=== PATIENT | male | born 1955 | race Two or more races ===

== ENCOUNTER 2022-06-25 03:20 | Emergency (ER) | payer OTHER ==
[2022-06-25 03:30] VITALS: BP 155/79; PULSE 86; RESP 17; TEMP 98.2; BMI 27.1
[2022-06-25] MEDS ORDERED: DEXAMETHASONE SOD PHOSPHATE 10 MG/1 ML VIAL IM ONE (03:54)
[2022-06-25] MEDS ORDERED: ALBUTEROL SO4 2.5/IPRATROPIUM 0.5 INH SOL 3 ML VIAL.NEB. NEB ONE (03:56)
[2022-06-25] MEDS ORDERED: DEXAMETHASONE SOD PHOSPHATE 10 MG/1 ML VIAL ONE (03:57)
[2022-06-25] MEDS ORDERED: ALBUTEROL SO4 2.5/IPRATROPIUM 0.5 INH SOL 3 ML VIAL.NEB. NEB SCH (04:00)
== END 2022-06-25 04:55 | disposition left against medical advice (07) ==
LOC: JER 03:20
PROC: 3E023GC Introduction of Other Therapeutic Substance into Muscle, Percutaneous Approach (ICD-10-PCS; principal; 2022-06-25)
PROC: 3E0F7GC Introduction of Other Therapeutic Substance into Respiratory Tract, Via Natural or Artificial Opening (ICD-10-PCS; 2022-06-25)
DX: R06.02 Shortness of breath (principal); J98.01 Acute bronchospasm; Z53.21 Procedure and treatment not carried out due to patient leaving prior to being seen by health care provider
CPT/HCPCS: 99284-25; J1100

== ENCOUNTER 2022-06-28 19:04 | Emergency (ER) | payer OTHER ==
[2022-06-28 19:10] VITALS: BMI 25.7
[2022-06-28] MEDS ORDERED: methylPREDNISolone NA SUCC 125 MG/2 ML VIAL IVPUSH ONE (20:11)
[2022-06-28] MEDS ORDERED: ALBUTEROL SO4 2.5/IPRATROPIUM 0.5 INH SOL 3 ML VIAL.NEB. NEB ONE ×3 (20:11→21:23)
[2022-06-28] MEDS ORDERED: methylPREDNISolone NA SUCC 125 MG/2 ML VIAL ONE (20:38)
[2022-06-28 21:10] LABS: BASO % 2.6 % (0-2.0); EOS % 10.7 % (0-4.5); MCHC 35.2 g/dl (32.0-35.9); MEAN PLT VOLUME 7.7 fl (7.5-11.1); MONO % 5.4 % (3.8-10.2); NEUT % 47.3 % (42.8-82.8); PLATELET COUNT 279 10^3/uL (134-434); RDW 13.4 % (11.9-15.9); WHITE BLOOD COUNT 14.6 K/mm3 (4.0-10.0)
[2022-06-28 21:17] LABS: INR 0.99 (0.83-1.09); PROTHROMBIN TIME (PATIENT) 11.5 SEC (9.7-13.0)
[2022-06-28 21:19] LABS: ACTIVATED PTT 31.9 SECONDS (25.2-36.5)
[2022-06-28] MEDS ORDERED: ALBUTEROL SO4 0.083% IH SOL 2.5 MG/3 ML VIAL.NEB. NEB ONE ×2 (21:22→21:30)
[2022-06-28] MEDS ORDERED: MAGNESIUM SULF 50% (8.12 MEQ/2 ML-1 GM VIAL) IVPB ONE (21:23)
[2022-06-28] MEDS ORDERED: MAGNESIUM SULFATE IN WATER 2 GM/50 ML IVPB IVPB ONE (21:24)
[2022-06-28 21:41] LABS: POTASSIUM 3.7 mmol/L (3.5-5.1)
[2022-06-28 21:43] LABS: CALCIUM 8.7 mg/dL (8.5-10.1)
[2022-06-28 21:44] LABS: ALBUMIN 4.2 g/dl (3.4-5.0); BLOOD UREA NITROGEN 15.5 mg/dL (7-18)
[2022-06-28 21:47] LABS: CREATININE 1.1 mg/dL (0.55-1.3)
[2022-06-28 21:49] LABS: BILIRUBIN,TOTAL 0.4 mg/dL (0.2-1)
[2022-06-28 21:51] LABS: N-TERMINAL BNP 17.4 pg/ml (5-125)
[2022-06-28 23:52] VITALS: BP 142/79; PULSE 89; RESP 18; TEMP 98.2
== END 2022-06-29 01:15 | disposition home or self-care (01) ==
LOC: JER 19:04
PROC: 3E03329 Introduction of Other Anti-infective into Peripheral Vein, Percutaneous Approach (ICD-10-PCS; principal; 2022-06-28)
PROC: 3E0F7GC Introduction of Other Therapeutic Substance into Respiratory Tract, Via Natural or Artificial Opening (ICD-10-PCS; 2022-06-28)
PROC: 3E0F7GC Introduction of Other Therapeutic Substance into Respiratory Tract, Via Natural or Artificial Opening (ICD-10-PCS; 2022-06-28)
PROC: 3E033GC Introduction of Other Therapeutic Substance into Peripheral Vein, Percutaneous Approach (ICD-10-PCS; 2022-06-28)
PROC: 3E033GC Introduction of Other Therapeutic Substance into Peripheral Vein, Percutaneous Approach (ICD-10-PCS; 2022-06-28)
DX: R05.9 Cough, unspecified (principal); R06.2 Wheezing; R06.02 Shortness of breath; J20.9 Acute bronchitis, unspecified; Z20.822 Contact with and (suspected) exposure to COVID-19
CPT/HCPCS: 0241U-QW; 36415; 71045-TC-FY; 80053; 82550; 82553; 83880; 84484; 85025; 85610; 85730; 93005; 93010; 94640; 96365; 96375; 99285-25

== ENCOUNTER 2022-07-17 01:10 | Emergency (ER) | payer OTHER ==
[2022-07-17 01:22] VITALS: BP 149/77; PULSE 81; RESP 20; TEMP 98.1; BMI 25.7
[2022-07-17] MEDS ORDERED: methylPREDNISolone NA SUCC 125 MG/2 ML VIAL IVPUSH ONE (01:31)
[2022-07-17] MEDS ORDERED: methylPREDNISolone NA SUCC 125 MG/2 ML VIAL ONE (01:37)
[2022-07-17] MEDS: ALBUTEROL SO4 2.5/IPRATROPIUM 0.5 INH SOL 3 ML VIAL.NEB. NEB SCH ×3 (01:53→02:30)
[2022-07-17] MEDS ORDERED: MAGNESIUM SULFATE IN WATER 2 GM/50 ML IVPB IVPB ONE ×2 (02:54→03:00)
[2022-07-17] MEDS ORDERED: ALBUTEROL SO4 0.083% IH SOL 2.5 MG/3 ML VIAL.NEB. NEB ONE (02:54)
[2022-07-17 02:58] LABS: BASO % 0.7 % (0-2.0); EOS % 11.1 % (0-4.5); HEMATOCRIT 48.9 % (35.4-49); HEMOGLOBIN 17.3 GM/dL (11.7-16.9); LYMPH % 26.2 % (8-40); MCH 31.3 pg (25.7-33.7); MCHC 35.3 g/dl (32.0-35.9); MEAN CELL VOLUME 88.7 fl (80-96); MEAN PLT VOLUME 8.5 fl (7.5-11.1); MONO % 6.8 % (3.8-10.2); NEUT % 55.2 % (42.8-82.8); PLATELET COUNT 284 10^3/uL (134-434); RBC 5.52 M/mm3 (4.00-5.60); RDW 13.5 % (11.9-15.9); WHITE BLOOD COUNT 13.1 K/mm3 (4.0-10.0)
[2022-07-17] MEDS: ALBUTEROL SO4 0.083% IH SOL 2.5 MG/3 ML VIAL.NEB. NEB SCH ×3 (02:58→03:49)
[2022-07-17 03:04] LABS: INR 1.03 (0.83-1.09); PROTHROMBIN TIME (PATIENT) 11.9 SEC (9.7-13.0)
[2022-07-17 03:06] LABS: ACTIVATED PTT 33.3 SECONDS (25.2-36.5)
[2022-07-17 03:17] LABS: POTASSIUM 5.6 mmol/L (3.5-5.1)
[2022-07-17 03:59] LABS: MAGNESIUM 2.1 mg/dL (1.8-2.4)
[2022-07-17 04:00] LABS: CALCIUM 9.3 mg/dL (8.5-10.1)
[2022-07-17 04:02] LABS: CREATININE 1.2 mg/dL (0.55-1.3)
[2022-07-17 04:04] LABS: BILIRUBIN,TOTAL 0.8 mg/dL (0.2-1)
[2022-07-17 04:07] LABS: TOT PROT 7.6 g/dl (6.4-8.2)
== END 2022-07-17 04:43 | disposition home or self-care (01) ==
LOC: JER 01:10
PROC: 3E033GC Introduction of Other Therapeutic Substance into Peripheral Vein, Percutaneous Approach (ICD-10-PCS; principal; 2022-07-17)
PROC: 3E033GC Introduction of Other Therapeutic Substance into Peripheral Vein, Percutaneous Approach (ICD-10-PCS; 2022-07-17)
PROC: 3E0F7GC Introduction of Other Therapeutic Substance into Respiratory Tract, Via Natural or Artificial Opening (ICD-10-PCS; 2022-07-17)
PROC: 3E0F7GC Introduction of Other Therapeutic Substance into Respiratory Tract, Via Natural or Artificial Opening (ICD-10-PCS; 2022-07-17)
DX: J45.909 Unspecified asthma, uncomplicated (principal); R06.02 Shortness of breath; R07.89 Other chest pain; R05.9 Cough, unspecified; Z20.822 Contact with and (suspected) exposure to COVID-19
CPT/HCPCS: 0241U-QW; 36415; 71046-TC-FY; 80053; 83735; 85025; 85610; 85730; 93005; 93010; 99285-25

== ENCOUNTER 2023-09-10 20:02 | Emergency (ER) | payer OTHER ==
[2023-09-10 20:10] VITALS: RESP 18; BMI 24.5
[2023-09-10] MEDS ORDERED: ACETAMINOPHEN 325 MG TABLET (FP) ONE (21:55)
[2023-09-10] MEDS: ACETAMINOPHEN 500 MG TABLET (FP) PO ONE (21:57)
[2023-09-11 00:29] LABS: BASO % 0.7 % (0-2.0); EOS % 4.3 % (0-4.5); HEMATOCRIT 47.4 % (35.4-49); HEMOGLOBIN 16.7 GM/dL (11.7-16.9); LYMPH % 19.4 % (8-40); MCH 31.3 pg (25.7-33.7); MCHC 35.3 g/dl (32.0-35.9); MEAN CELL VOLUME 88.8 fl (80-96); MEAN PLT VOLUME 7.8 fl (7.5-11.1); MONO % 8.8 % (3.8-10.2); NEUT % 66.8 % (42.8-82.8); PLATELET COUNT 296 10^3/uL (134-434); RBC 5.34 M/mm3 (4.00-5.60); WHITE BLOOD COUNT 13.2 K/mm3 (4.0-10.0)
[2023-09-11 00:46] LABS: POTASSIUM 4.2 mmol/L (3.5-5.1)
[2023-09-11 00:48] LABS: CALCIUM 8.8 mg/dL (8.5-10.1)
[2023-09-11 00:49] LABS: BLOOD UREA NITROGEN 15.9 mg/dL (7-18)
[2023-09-11 00:52] LABS: CREATININE 1.1 mg/dL (0.55-1.3)
[2023-09-11 00:53] LABS: BILIRUBIN,TOTAL 0.5 mg/dL (0.2-1); TOT PROT 7.8 g/dl (6.4-8.2)
[2023-09-11 01:33] VITALS: BP 118/72; PULSE 79; TEMP 98
[2023-09-11] MEDS ORDERED: AZITHROMYCIN 500 MG TABLET ONE (01:38)
[2023-09-11] MEDS: AZITHROMYCIN 250 MG TABLET PO ONE (01:39)
== END 2023-09-11 01:39 | disposition home or self-care (01) ==
LOC: JER 20:02
DX: U07.1 COVID-19 (principal); R50.9 Fever, unspecified; R09.81 Nasal congestion; R05.9 Cough, unspecified
CPT/HCPCS: 0241U-QW; 36415; 71046-TC-FY; 80053; 85025; 99284-25